=== PATIENT | male | born 1960 | race Caucasian/White ===

== ENCOUNTER → 2020-05-04 | Outpatient (CLI) | payer BC ==
[~2020-05-04] VITALS: Ht 180.3 cm; Wt 108.4 kg
[~2020-05-04] MED LIST: REGADENOSON 0.4 MG/5 ML PF SYG IVP SCH
== END | disposition home or self-care (01) ==
LOC: SHCH 08:04
PROVIDERS: ATTEND Internal Medicine Cardiovascular Disease
DX: R07.9 Chest pain, unspecified (principal); R06.00 Dyspnea, unspecified
CPT/HCPCS: 78452; 93017; 96374; A9500 ×2; J2785

== ENCOUNTER 2020-09-15 06:07 | Day surgery (SDC) | payer BC ==
[2020-09-14 09:54] LABS: BASOPHILS % (AUTO) 1.2 % (0.0-5.0); EOSINOPHILS % (AUTO) 2.9 % (0.0-8.0); HEMATOCRIT 44.1 % (42-54); LYMPHOCYTES % (AUTO) 21.4 % (21.0-51.0); MEAN CORPUSCULAR HEMOGLOBIN 20.7 pg (27.0-33.0); MEAN CORPUSCULAR VOLUME 71.5 fL (79-99); MONOCYTES % (AUTO) 10.6 % (3.0-13.0); NEUTROPHILS % (AUTO) 63.7 % (40.0-77.0); PLATELET COUNT (AUTO) 462 K/uL (130-400); RED BLOOD CELL COUNT(AUTO) 6.17 MIL/uL (4.50-6.20); RED CELL DISTRIBUTION WIDTH 15.7 % (11.0-15.5); WHITE BLOOD COUNT (AUTO) 5.1 K/uL (4.8-10.8)
[2020-09-14 10:04] LABS: INR 1.07 (0.85-1.15); PROTHROMBIN TIME 11.6 SEC (9.6-11.6)
[2020-09-14 10:06] LABS: PARTIAL THROMBOPLASTIN TIME 30.2 SEC (26.3-35.5)
[2020-09-14 10:09] LABS: CREATININE 1.4 mg/dL (0.5-1.5)
[2020-09-14 15:42] VITALS: BP 133/72
[2020-09-15] VITALS (8 sets, daily range): BP systolic 128–144; BP diastolic 65–90
[~2020-09-15] VITALS: Ht 185.4 cm; Wt 103.9 kg
[~2020-09-15 06:07] MED LIST changes: +0.9%NACL 1000ML 1,000 ML IV ONE; +AEC81 PO; +AMLO-257 PO; +APIX5TAB PO; +ATOR40TA69 PO; +DAPA1TAB3 PO; +DRON400T7 PO; +LOSA25TA41 PO; -REGADENOSON 0.4 MG/5 ML PF SYG IVP SCH; +TRULICITY SQ
[2020-09-15] MEDS ORDERED: MIDAZOLAM HCL 1 MG/ML 2ML VIAL ONE ×5 (07:19→09:39)
[2020-09-15] MEDS ORDERED: MEPERIDINE-PF 25 MG/ML SYG ONE ×5 (07:19→09:39)
[2020-09-15] MEDS ORDERED: HEPARIN 10,000 UNIT/10ML (1,000 UNIT/ML) VIAL ONE (07:19)
[2020-09-15] MEDS ORDERED: LIDOCAINE HCL 400MG/20ML VIAL ONE (07:19)
== END 2020-09-15 13:15 | disposition home or self-care (01) ==
LOC: DAH 06:07
PROVIDERS: ATTEND Internal Medicine Cardiovascular Disease
DX: I48.3 Typical atrial flutter (principal); E11.22 Type 2 diabetes mellitus with diabetic chronic kidney disease; I13.0 Hypertensive heart and chronic kidney disease with heart failure and stage 1 through stage 4 chronic kidney disease, or unspecified chronic kidney disease; N18.31 Chronic kidney disease, stage 3a; I50.22 Chronic systolic (congestive) heart failure; I48.0 Paroxysmal atrial fibrillation; F17.290 Nicotine dependence, other tobacco product, uncomplicated; Z79.4 Long term (current) use of insulin; Z79.82 Long term (current) use of aspirin; Z79.899 Other long term (current) drug therapy; Z79.01 Long term (current) use of anticoagulants; Z82.49 Family history of ischemic heart disease and other diseases of the circulatory system; Z87.01 Personal history of pneumonia (recurrent)
CPT/HCPCS: 36415; 80048; 82948 ×2; 85025; 85610; 85730; 93613; 93621; 93653; A4215; A4216; A4221; A4222; A4223 ×3; A4606; A4649 ×2; A4663; C1730; C1732; C1894 ×2; J1644 ×2; J2175 ×5; J2250 ×5; J3490; J7030; 99156; 99157

== ENCOUNTER → 2022-11-21 | Outpatient (CLI) | payer OTHER ==
[~2022-11-21] MED LIST changes: -0.9%NACL 1000ML 1,000 ML IV ONE; -DRON400T7 PO
== END | disposition home or self-care (01) ==
LOC: LAB 12:48
PROVIDERS: ATTEND Internal Medicine Cardiovascular Disease
DX: I48.92 Unspecified atrial flutter (principal)
CPT/HCPCS: 36415; 83880

== ENCOUNTER 2023-10-29 06:00 | Day surgery (SDC) | payer OTHER ==
[2023-10-25 12:38] LABS: BASOPHILS # (AUTO) 0.05 K/uL (0.00-0.20); EOSINOPHILS # (AUTO) 0.07 K/uL (0.00-0.70); EOSINOPHILS % (AUTO) 1.4 % (0.0-8.0); HEMATOCRIT 51.4 % (42-54); IMMATURE GRANULOCYTE ABSOLUTE 0.01 K/uL (0-1); LYMPHOCYTES # (AUTO) 1.1 K/uL (1.0-4.8); LYMPHOCYTES % (AUTO) 22.4 % (21.0-51.0); MEAN CORPUSCULAR HEMOGLOBIN 26.1 pg (27.0-33.0); MEAN CORPUSCULAR HGB CONC 31.5 g/dL (32.0-36.0); MEAN CORPUSCULAR VOLUME 82.9 fL (79-99); MONOCYTES # (AUTO) 0.3 K/uL (0.1-1.0); MONOCYTES % (AUTO) 6.5 % (3.0-13.0); NEUTROPHILS # (AUTO) 3.5 K/uL (1.8-7.7); NEUTROPHILS % (AUTO) 68.5 % (40.0-77.0); PLATELET COUNT (AUTO) 260 K/uL (130-400); RED CELL DISTRIBUTION WIDTH 14.4 % (11.0-15.5)
[2023-10-25 12:49] LABS: INR 0.99 (0.85-1.15); PROTHROMBIN TIME 10.7 SEC (9.6-11.6)
[2023-10-25 12:50] LABS: CREATININE 1.5 mg/dL (0.5-1.3); PARTIAL THROMBOPLASTIN TIME 30.2 SEC (26.3-35.5); POTASSIUM 4.3 mmol/L (3.5-5.1)
[2023-10-25 13:05] VITALS: BP 146/80; PULSE 72; RESP 18
[2023-10-25 13:30] LABS: B-TYPE NATRIURETIC PEPTIDE 20 pg/mL (0-100)
[2023-10-29] VITALS (10 sets, daily range): BP systolic 132–156; BP diastolic 76–91; PULSE 66–76; RESP 18
[~2023-10-29] VITALS: Ht 185.4 cm; Wt 107.2 kg
[~2023-10-29 06:00] MED LIST changes: -ATOR40TA69 PO; -DAPA1TAB3 PO; +EMPA1TAB15 PO; +LOSA1TAB54 PO; -LOSA25TA41 PO; +TAMS-1 PO; +TIRZ7.5P SQ; -TRULICITY SQ
[2023-10-29] MEDS: 0.9%NACL 1000ML 1,000 ML IV SCH (06:59)
[2023-10-29] MEDS ORDERED: LIDOCAINE HCL 400MG/20ML VIAL ONE (07:12)
[2023-10-29] MEDS ORDERED: HEPARIN 10,000 UNIT/10ML (1,000 UNIT/ML) VIAL ONE ×2 (07:12→09:19)
[2023-10-29] MEDS ORDERED: IODIXANOL 320 MG/ML 100 ML VIAL ONE ×2 (07:12→09:38)
[2023-10-29] MEDS ORDERED: NITROGLYCERIN 50MG VIAL ONE (07:13)
[2023-10-29] MEDS ORDERED: MIDAZOLAM HCL 1 MG/ML 2ML VIAL ONE ×4 (07:22→09:20)
[2023-10-29] MEDS ORDERED: FENTANYL CITRATE PF 50 MCG/1 ML 2ML VIAL ONE ×2 (07:22→08:57)
[2023-10-29] MEDS ORDERED: NICARDIPINE 25MG INJ IV ONE (07:22)
[2023-10-29] MEDS ORDERED: CLOPIDOGREL 300MG TAB ONE (08:24)
[2023-10-29] MEDS ORDERED: ASPIRIN 325MG EC TAB PO ONE (10:19)
[2023-10-29] MEDS ORDERED: 0.9%NACL 1000ML 1,000 ML IV SCH (10:30)
== END 2023-10-29 14:30 | disposition home or self-care (01) ==
LOC: DAH 06:00
PROVIDERS: ATTEND Internal Medicine Cardiovascular Disease
DX: E11.51 Type 2 diabetes mellitus with diabetic peripheral angiopathy without gangrene (principal); I70.201 Unspecified atherosclerosis of native arteries of extremities, right leg; I25.10 Atherosclerotic heart disease of native coronary artery without angina pectoris; I70.92 Chronic total occlusion of artery of the extremities; Z95.1 Presence of aortocoronary bypass graft; Z79.01 Long term (current) use of anticoagulants; I48.0 Paroxysmal atrial fibrillation; I13.0 Hypertensive heart and chronic kidney disease with heart failure and stage 1 through stage 4 chronic kidney disease, or unspecified chronic kidney disease; E11.22 Type 2 diabetes mellitus with diabetic chronic kidney disease; I50.9 Heart failure, unspecified; N18.31 Chronic kidney disease, stage 3a; I48.92 Unspecified atrial flutter; I48.3 Typical atrial flutter; Z88.1 Allergy status to other antibiotic agents; Z79.4 Long term (current) use of insulin; Z79.82 Long term (current) use of aspirin; Z79.899 Other long term (current) drug therapy
CPT/HCPCS: 80048; 83880; 85025; 85610; 85730; 36415; 71045; 85347; 82948; 93005; 75630; 37220; 37228; C9772; C1887 ×2; C1725 ×4; C1894 ×2; C1769 ×4; C1760; C2623 ×3; C1893; C9764; J3010 ×2; J3490 ×3; J7030; J1644 ×4; J2250 ×4; Q9967 ×2; A4215; A4222; A4221; A4663; A4216; A4606; A4223 ×3; 75716; 99156; 99157